=== PATIENT | male | born 1955 | race Two or more races ===

== ENCOUNTER 2016-10-21 08:43 | Emergency (ER) | payer BC, OTHER ==
[~2016-10-21] VITALS: Ht 157.5 cm; Wt 81.6 kg
[2016-10-21 08:57] VITALS: BP 121/72
== END 2016-10-21 09:31 | disposition home or self-care (01) ==
LOC: ER 08:43
DX: B02.9 Zoster without complications (principal); J06.9 Acute upper respiratory infection, unspecified